=== PATIENT | female | born 1945 ===

== ENCOUNTER → 2025-01-03 10:17 | Outpatient (CLI) | payer OTHER ==
[2025-01-03 11:07] LABS: BASO % 0.4 % (0.1-1.2); EOS # 0.09 (0.04-0.54); EOS % 0.8 % (0.7-7.0); HEMATOCRIT 31.9 % (34.1-44.9); HEMOGLOBIN 10.2 g/dL (11.2-15.7); LYMPH # 1.68 (1.18-3.74); LYMPH % 14.6 % (19.3-53.1); MONO # 0.52 (0.24-0.82); MONO % 4.5 % (4.7-12.5); NEUT # 9.09 (1.56-6.13); NEUT % 79.2 % (34.0-71.1); PLATELET COUNT 434 K/uL (163-369); RED BLOOD COUNT 3.92 M/uL (3.93-5.22); RED CELL DISTRIBUTION WIDTH 14.6 % (11.6-14.4)
[2025-01-03 11:34] LABS: URINE APPEARANCE Clear; URINE BILIRRUBIN Negative (NEGATIVE); URINE BLOOD Negative; URINE COLOR Yellow; URINE GLUCOSE Negative (NEGATIVE); URINE KETONE Negative (NEGATIVE); URINE LEUKOCYTE Moderate; URINE NITRATE Negative; URINE PROTEIN Negative (NEGATIVE); URINE UROBILINOGEN 0.2 E.U./dl
[2025-01-03 11:37] LABS: URINE BACTERIA 362.2 uL (0.0-1933); URINE CAST 3.09 uL (0.0-1.40); URINE EPITHELIAL CELLS 45.1 uL (0.0-38.8); URINE RBC 8.2 uL (0.0-20.8); URINE WBC 137.8 uL (0.0-23.2)
[2025-01-03 11:43] LABS: INR 0.99; PARTIAL THROMBOPLASTIN TIME 25.2 SECONDS (22.0-34.0); PROTHROMBIN TIME 10.8 SECONDS (9.0-11.5)
[2025-01-03 11:47] LABS: COL EPI 80 SECONDS (82-175)
[2025-01-03 12:12] LABS: ALBUMIN 3.4 gm/dL (3.4-5.0); BILIRUBIN TOTAL 0.31 mg/dL (0.3-1.2); CALCIUM 9.2 mg/dL (8.5-10.1); CREATININE SERUM 1.15 mg/dL (0.55-1.02); GFR 45.4; GLOBULINA 3.8 G/DL (2.4-3.5); PHOSPHOROUS 3.9 mg/dL (2.5-4.9); POTASSIUM 5.08 mEq/L (3.5-5.1); TOTAL PROTEIN 7.2 gm/dL (6.4-8.2)
== END | disposition home or self-care (01) ==
LOC: LAB 10:17
PROVIDERS: ATTEND Orthopaedic Surgery
DX: D64.9 Anemia, unspecified (principal); E88.89 Other specified metabolic disorders; D68.8 Other specified coagulation defects; N39.0 Urinary tract infection, site not specified; Z22.322 Carrier or suspected carrier of Methicillin resistant Staphylococcus aureus; E55.9 Vitamin D deficiency, unspecified; M85.9 Disorder of bone density and structure, unspecified; E56.1 Deficiency of vitamin K; E21.3 Hyperparathyroidism, unspecified; M81.8 Other osteoporosis without current pathological fracture

== ENCOUNTER → 2025-01-03 10:49 | Outpatient (CLI) | payer OTHER | END | disposition home or self-care (01) | LOC: NUCLEAR 10:49 | PROVIDERS: ATTEND Orthopaedic Surgery | DX: M81.0 Age-related osteoporosis without current pathological fracture (principal) ==

== ENCOUNTER 2025-05-02 07:25 | Outpatient (CLI) | payer OTHER ==
[2025-05-02 08:57] LABS: BASO % 0.5 % (0.1-1.2); EOS # 0.23 (0.04-0.54); EOS % 1.8 % (0.7-7.0); LYMPH # 2.03 (1.18-3.74); LYMPH % 16.1 % (19.3-53.1); MEAN PLATELET VOLUME 10.40 fl (9.4-12.4); MONO # 0.65 (0.24-0.82); MONO % 5.2 % (4.7-12.5); NEUT # 9.61 (1.56-6.13); NEUT % 76.1 % (34.0-71.1); RED CELL DISTRIBUTION WIDTH 15.2 % (11.6-14.4)
[2025-05-02 09:13] LABS: URINE APPEARANCE Cloudy; URINE BILIRRUBIN Negative (NEGATIVE); URINE BLOOD Negative; URINE COLOR Yellow; URINE GLUCOSE Negative (NEGATIVE); URINE KETONE Negative (NEGATIVE); URINE LEUKOCYTE Moderate; URINE NITRATE Negative; URINE PROTEIN Trace (NEGATIVE); URINE UROBILINOGEN 0.2 E.U./dl
[2025-05-02 09:14] LABS: URINE BACTERIA 277.2 uL (0.0-1933); URINE CAST 5.13 uL (0.0-1.40); URINE EPITHELIAL CELLS 25.8 uL (0.0-38.8); URINE RBC 229.0 uL (0.0-20.8); URINE WBC 158.4 uL (0.0-23.2)
[2025-05-02 09:17] LABS: INR 1.00
[2025-05-02 09:37] LABS: COL EPI 65 SECONDS (82-175)
[2025-05-02 09:42] LABS: ALT/SGPT 25.0 U/L (12-78); AST/SGOT 16.0 U/L (15-37); BILIRUBIN TOTAL 0.32 mg/dL (0.3-1.2); BUN CREA RATIO 21.0 (7.0-25.0); CREATININE SERUM 1.05 mg/dL (0.55-1.02); GFR 50.43; GLOBULINA 3.3 G/DL (2.4-3.5); GLUCOSE FASTING 123.0 mg/dL (65-100); OSMOLALITY SERUM 286.0 MOSM/KG (275-295)
[2025-05-02 09:44] LABS: TYPE CELLS RENAL TUBULAR; URINE CRYSTALS FEW /HPF
== END 2025-05-02 07:37 | disposition home or self-care (01) ==
LOC: RAD 07:25
PROVIDERS: ATTEND Orthopaedic Surgery
DX: D64.9 Anemia, unspecified (principal); E88.9 Metabolic disorder, unspecified; D68.8 Other specified coagulation defects; N39.0 Urinary tract infection, site not specified; Z22.322 Carrier or suspected carrier of Methicillin resistant Staphylococcus aureus; E11.9 Type 2 diabetes mellitus without complications; Z76.89 Persons encountering health services in other specified circumstances; I10 Essential (primary) hypertension

== ENCOUNTER 2025-05-05 12:15 | Inpatient (IN) | payer OTHER ==
[~2025-05-05] VITALS: Wt 86.2 kg
[2025-05-05] MEDS ORDERED: COZAAR25 MG (14:00)
[2025-05-05] MEDS ORDERED: PROAIR RESPICL90 MCG IH (14:00)
[2025-05-31] MEDS ORDERED: CEFAZOLIN SODIUM 1,000 MG VIAL ONE ×2 (07:07→16:08)
[2025-05-31] MEDS ORDERED: BUPIVACAINE HCL/MPF 0.5% 30ML VIAL ONE (07:23)
[2025-05-31] MEDS ORDERED: ISOPROPYL ALCOHOL 30 ML OUNCE TOP ONE ×2 (07:24→09:00)
[2025-05-31] MEDS ORDERED: TRANEXAMIC ACID 100MG/1ML (1000MG) AMPUL ONE (07:24)
[2025-05-31] MEDS ORDERED: BUPIVACAINE HCL 30 ML VIAL IJ ONE (09:00)
[2025-05-31] MEDS ORDERED: TRANEXAMIC ACID 100MG/1ML (1000MG) AMPUL IV ONE ×2 (09:00)
[2025-05-31] MEDS ORDERED: VANCOMYCIN HCL 1,000 MG VIAL IR ONE (09:00)
[2025-05-31] MEDS ORDERED: CEFAZOLIN SODIUM 1,000 MG VIAL IV ONE (09:00)
[2025-05-31] MEDS ORDERED: ENALAPRILAT DIHYDRATE 1.25 MG/ML VIAL IV ONE ×2 (11:07→16:07)
[2025-05-31] MEDS ORDERED: TRAMADOL HCL 50 MG TABLET PO PRN (11:15)
[2025-05-31] MEDS ORDERED: SODIUM CHLORIDE 0.45 % 1,000 ML IV SCH (11:15)
[2025-05-31] MEDS ORDERED: ONDANSETRON HCL 2 MG/ML VIAL IV PRN (11:15)
[2025-05-31] MEDS ORDERED: PROMETHAZINE HCL 50 MG/ML AMPUL IM PRN (11:15)
[2025-05-31] MEDS ORDERED: ONDANSETRON 4 MG TAB.RAPDIS PO PRN (11:15)
[2025-05-31] MEDS ORDERED: ACETAMINOPHEN 325 MG TABLET PO SCH (13:00)
[2025-05-31] MEDS ORDERED: ENALAPRILAT DIHYDRATE 1.25 MG/ML VIAL IV PRN ×2 (15:45→17:51)
[2025-05-31] MEDS ORDERED: CELECOXIB 200 MG CAPSULE PO ONE (16:07)
[2025-05-31] MEDS ORDERED: HYOSCYAMINE SULFATE 0.125 MG TAB.SUBL ONE (16:07)
[2025-05-31] MEDS ORDERED: CEFAZOLIN SODIUM 1,000 MG VIAL IV SCH (17:00)
[2025-05-31] MEDS ORDERED: CELECOXIB 200 MG CAPSULE PO SCH (17:00)
[2025-05-31 17:12] VITALS: BP 183/72; O2SAT 97
[2025-05-31] MEDS ORDERED: hydrALAZINE HCL 20 MG VIAL IV NR (18:00)
[2025-05-31 19:24] VITALS: BP 149/54
[2025-05-31] MEDS ORDERED: IPRATROPIUM/ALBUTEROL SULFATE 3 ML AMPUL.NEB IH SCH (21:00)
[2025-06-01 00:24] VITALS: BP 135/54; O2SAT 99
[2025-06-01 06:20] LABS: BASO % 0.4 % (0.1-1.2); EOS # 0.02 (0.04-0.54); EOS % 0.2 % (0.7-7.0); LYMPH # 1.82 (1.18-3.74); LYMPH % 15.7 % (19.3-53.1); MEAN PLATELET VOLUME 9.80 fl (9.4-12.4); MONO # 0.86 (0.24-0.82); MONO % 7.4 % (4.7-12.5); NEUT # 8.80 (1.56-6.13); NEUT % 76.0 % (34.0-71.1); RED CELL DISTRIBUTION WIDTH 15.4 % (11.6-14.4)
[2025-06-01 08:00] VITALS: BP 190/72; O2SAT 99
[2025-06-01] MEDS ORDERED: PANTOPRAZOLE SODIUM 40 MG TABLET.DR PO SCH (09:00)
[2025-06-01 12:00] VITALS: BP 160/65
[2025-06-01 13:55] VITALS: BP 198/66; O2SAT 97
[2025-06-01] MEDS ORDERED: SPIRONOLACTONE 25 MG TABLET PO NR (15:30)
[2025-06-01] MEDS ORDERED: DOXAZOSIN MESYLATE 2 MG TABLET PO NR (15:30)
[2025-06-01] MEDS ORDERED: NIFEDIPINE 90 MG TAB.SA.OSM PO NR (15:30)
[2025-06-01 16:40] VITALS: BP 166/59; O2SAT 100
[2025-06-01] MEDS ORDERED: ATORVASTATIN CALCIUM 40 MG TABLET PO SCH (17:00)
[2025-06-01] MEDS ORDERED: MONTELUKAST SODIUM 10 MG TABLET PO SCH (17:00)
[2025-06-01 18:24] VITALS: BP 150/60; O2SAT 98
[2025-06-02 00:17] VITALS: BP 154/59; O2SAT 98
[2025-06-02 03:21] LABS: BASO % 0.3 % (0.1-1.2); EOS # 0.03 (0.04-0.54); EOS % 0.2 % (0.7-7.0); LYMPH # 1.33 (1.18-3.74); LYMPH % 9.2 % (19.3-53.1); MEAN PLATELET VOLUME 9.30 fl (9.4-12.4); MONO # 1.08 (0.24-0.82); MONO % 7.5 % (4.7-12.5); NEUT # 11.87 (1.56-6.13); NEUT % 82.5 % (34.0-71.1); RED CELL DISTRIBUTION WIDTH 15.3 % (11.6-14.4)
[2025-06-02] MEDS ORDERED: PATIENTS OWN MEDICATION (MEDICAMENTO EN PISO NEVERA) PO SCH (09:00)
[2025-06-02] MEDS ORDERED: DOXAZOSIN MESYLATE 2 MG TABLET PO SCH (09:00)
[2025-06-02] MEDS ORDERED: SENNA/DOCUSATE SODIUM 1 TAB TABLET PO SCH (09:00)
[2025-06-02] MEDS ORDERED: ISOSORBIDE MONONITRATE 60 MG TABLET PO SCH (09:00)
[2025-06-02] MEDS ORDERED: SPIRONOLACTONE 25 MG TABLET PO SCH (09:00)
[2025-06-02] MEDS ORDERED: NIFEDIPINE 90 MG TAB.SA.OSM PO SCH (09:00)
[2025-06-02 10:27] VITALS: BP 140/56; O2SAT 100
== END 2025-06-02 15:06 | disposition home or self-care (01) | DRG 483 ==
LOC: SURH 05-17 12:15 → O/R 05-31 06:00 → SURH 05-31 06:00
PROVIDERS: ADMIT Orthopaedic Surgery; ATTEND Orthopaedic Surgery
PROC: 0PBB0ZZ Excision of Left Clavicle, Open Approach (ICD-10-PCS; 2025-05-31)
PROC: 0LS40ZZ Reposition Left Upper Arm Tendon, Open Approach (ICD-10-PCS; 2025-05-31)
PROC: 0RRK00Z Replacement of Left Shoulder Joint with Reverse Ball and Socket Synthetic Substitute, Open Approach (ICD-10-PCS; principal; 2025-05-31 13:00)
PROC: 30233N0 Transfusion of Autologous Red Blood Cells into Peripheral Vein, Percutaneous Approach (ICD-10-PCS; 2025-06-01)
DX: M19.212 Secondary osteoarthritis, left shoulder (principal); D62 Acute posthemorrhagic anemia; M75.122 Complete rotator cuff tear or rupture of left shoulder, not specified as traumatic; S46.212A Strain of muscle, fascia and tendon of other parts of biceps, left arm, initial encounter; M62.512 Muscle wasting and atrophy, not elsewhere classified, left shoulder; D64.89 Other specified anemias; J45.998 Other asthma; I10 Essential (primary) hypertension